=== PATIENT | male | born 1995 | race Two or more races ===

== ENCOUNTER 2018-07-03 12:02 | Emergency (ER) | payer OTHER ==
[~2018-07-03] VITALS: Ht 170.2 cm; Wt 54.9 kg
[2018-07-03 12:11] VITALS: Ht 170.2 cm; Wt 54.9 kg
[2018-07-03 13:57] VITALS: BP 126/71
== END 2018-07-03 13:57 | disposition home or self-care (01) ==
LOC: ED 12:02
DX: S80.11XA Contusion of right lower leg, initial encounter (principal); Z88.0 Allergy status to penicillin; W10.8XXA Fall (on) (from) other stairs and steps, initial encounter; Y93.89 Activity, other specified; Y92.89 Other specified places as the place of occurrence of the external cause; Y99.8 Other external cause status